=== PATIENT | female | born 1980 | race Caucasian/White ===

== ENCOUNTER 2023-06-30 15:33 | Emergency (ER) | payer BC ==
[2023-06-30 15:47] VITALS: BP 119/70; PULSE 69
[2023-06-30] MEDS ORDERED: Sodium Chloride 0.9% 10 ML Syringe FLUSH PRN (15:51)
[2023-06-30] MEDS ORDERED: Ketorolac 30 MG/ML SDV IVPUSH ONE (16:00)
[2023-06-30] MEDS ORDERED: Ondansetron 4 MG/2 ML SDV IVPUSH ONE (16:00)
[2023-06-30] MEDS ORDERED: Iopamidol 755 Mg/ML 100 ML Bottle IV ONE (16:01)
[2023-06-30 16:05] LABS: BASOPHILS PERCENT AUTO 0.3 % (0.0-1.0); HEMATOCRIT 40.9 % (37.0-47.0); HEMOGLOBIN 13.9 g/dL (12.0-16.0); LYMPHOCYTES PERCENT AUTO 11.1 % (20.5-50.1); MEAN CORPUSCULAR HEMOGLOBIN 30.5 pg (27.0-34.0); MEAN CORPUSCULAR VOLUME 89.7 fL (80-100); MONOCYTES PERCENT AUTO 5.8 % (2-8); NEUTROPHILS PERCENT AUTO 81.8 % (42.2-75.2); PLATELET COUNT,PLT 198 10^3/uL (150-450); RED BLOOD CELL COUNT 4.56 10^6/uL (4.2-5.4); WHITE BLOOD CELL COUNT,WBC 7.2 10^3/uL (5.0-10.0)
[2023-06-30 16:22] LABS: ALBUMIN 3.3 g/dL (3.4-5.0); BILIRUBIN TOTAL 1.3 mg/dL (0.2-1.0); BUN/CREATININE RATIO 11.5 (No establ ref range); CREATININE 1.04 mg/dL (0.55-1.02); EST CRCL DRUG DOSING (CG) 76.2 mL/min; PROTEIN TOTAL,TP 6.9 g/dL (6.4-8.2)
[2023-06-30 16:23] LABS: APPEARANCE,URINE CLEAR (CLEAR); BILIRUBIN,URINE NEGATIVE (NEGATIVE); COLOR,URINE YELLOW (YELLOW); GLUCOSE,URINE NEGATIVE (NEGATIVE); KETONES,URINE 40 (NEGATIVE); LEUKOCYTE ESTERASE,URINE NEGATIVE (NEGATIVE); NITRITE,URINE NEGATIVE (NEGATIVE); OCCULT BLOOD,URINE NEGATIVE (NEGATIVE); PH,URINE 5.5 (5.0-9.0); PROTEIN,URINE NEGATIVE (NEGATIVE)
[2023-06-30] MEDS ORDERED: Iopamidol 612 MG/ML 100 ML Bottle IVPUSH ONE (16:32)
[2023-06-30 16:34] LABS: A/G RATIO 0.92
[2023-06-30 16:47] LABS: CORONAVIRUS COVID-19 NAA NEGATIVE (NEGATIVE); INFLUENZA A NAA NEGATIVE (NEGATIVE); INFLUENZA B NAA NEGATIVE (NEGATIVE)
== END 2023-06-30 17:35 | disposition home or self-care (01) ==
LOC: DL.ED 15:33
DX: A08.4 Viral intestinal infection, unspecified (principal); Z20.822 Contact with and (suspected) exposure to COVID-19
CPT/HCPCS: 0240U; 36415; 74177; 80053; 81003; 83690; 85025; 96374; 96375; 99284; J1885; J2405; Q9967; J3490